=== PATIENT | male | born 1975 | race Two or more races ===

== ENCOUNTER → 2024-02-02 | Outpatient (BNVA) | payer MEDICAID, SELFPAY | END | disposition home or self-care (01) | PROVIDERS: PCP Nurse Practitioner Primary Care; Referring Provider Nurse Practitioner Primary Care; Visit Provider Nurse Practitioner Primary Care | DX: Z00.01 Encounter for general adult medical examination with abnormal findings (principal); E78.2 Mixed hyperlipidemia; Z11.3 Encounter for screening for infections with a predominantly sexual mode of transmission; E66.01 Morbid (severe) obesity due to excess calories; Z68.41 Body mass index [BMI] 40.0-44.9, adult; R01.1 Cardiac murmur, unspecified; R00.1 Bradycardia, unspecified; I10 Essential (primary) hypertension; Z13.21 Encounter for screening for nutritional disorder; R73.03 Prediabetes; Z12.5 Encounter for screening for malignant neoplasm of prostate; Z91.199 Patient's noncompliance with other medical treatment and regimen due to unspecified reason | CPT/HCPCS: 99215 ==

== ENCOUNTER → 2024-03-09 | Outpatient (BNVA) | payer MEDICAID, SELFPAY | END | disposition home or self-care (01) | PROVIDERS: PCP Nurse Practitioner Primary Care; Referring Provider Nurse Practitioner Primary Care; Visit Provider Nurse Practitioner Primary Care | DX: E78.2 Mixed hyperlipidemia (principal); I10 Essential (primary) hypertension; Z71.2 Person consulting for explanation of examination or test findings; R73.03 Prediabetes; E55.9 Vitamin D deficiency, unspecified | CPT/HCPCS: 99213 ==

== ENCOUNTER → 2024-04-21 | Outpatient (BNVA) | payer MEDICAID, SELFPAY | END | disposition home or self-care (01) | PROVIDERS: PCP Nurse Practitioner Primary Care; Referring Provider Nurse Practitioner Primary Care; Visit Provider Nurse Practitioner Primary Care | DX: E66.01 Morbid (severe) obesity due to excess calories (principal); Z68.41 Body mass index [BMI] 40.0-44.9, adult; R73.03 Prediabetes | CPT/HCPCS: 83036; 99214 ==

== ENCOUNTER 2024-06-06 18:15 | Emergency (ER) | payer MEDICAID, SELFPAY ==
[2024-06-06 18:16] VITALS: BMI 37.5
[2024-06-06 18:47] VITALS: BP 147/87; PULSE 87; RESP 20; TEMP 36.5; O2SAT 97
--- NOTE | 2024-06-06 18:49 | XR_ITS ---
Examination: AP lateral soft tissue neck 2 views Technique: AP lateral soft tissue neck 2 views Exam date and time: 04/08/2024 1934 hrs. Indications: Vomiting today Findings: No opaque foreign body depicted No distention hypopharynx Normal epiglottis Impression: No opaque foreign body visualized
--- NOTE | 2024-06-06 18:50 | PD.EDRME ---
Rapid Medical Screening Exam RME Arrival date/time: 06/06/24 18:15 49 yo m present to ED for c/o food bolus today vomiting everytime trying to drink I have greeted and performed a focused initial assessment of this patient. A comprehensive ED assessment and evaluation of the patient, analysis of all test results, and completion of the medical decision making process will be conducted by additional ED providers. Chief Complaint: General Adult/Misc Complain Time Seen by Provider: 06/06/24 18:20 Vital signs: Vital Signs Temperature 97.7 F 06/06/24 18:47 Pulse Rate 87 06/06/24 18:47 Respiratory Rate 20 06/06/24 18:47 Blood Pressure 147/87 H 06/06/24 18:47 Pulse Oximetry (%) 97 06/06/24 18:47 Oxygen Delivery Method Room Air 06/06/24 18:47
--- NOTE | 2024-06-06 20:21 | PD.EDADULT ---
ED General RME/HPI General Chief complaint: General Adult/Misc Complain Stated complaint: MEAT STUCK IN ESOPHAGUS Time Seen by Provider: 06/06/24 18:20 Arrival date/time: 06/06/24 18:15 CC: Abrupt onset of inability to swallow HPI onset 2 hours ago after eating a large piece of steak patient said he chewed it but as it went down he got lodged. Patient continues to not be able to swallow his own saliva. Patient denies any shortness of breath or difficulty breathing. RME / HPI RME / HPI narrative: 06/06/24 18:15 49 yo m present to ED for c/o food bolus today vomiting everytime trying to drink I have greeted and performed a focused initial assessment of this patient. A comprehensive ED assessment and evaluation of the patient, analysis of all test results, and completion of the medical decision making process will be conducted by additional ED providers. Related Data Previous Rx's ?Medication ?Instructions ?Recorded atorvastatin 20 mg tablet 20 mg PO QHS #90 tabs 02/02/24 fexofenadine 180 mg tablet 180 mg PO QDAY #90 tabs 02/02/24 (Allergy Relief (fexofenadine)) lisinopril 40 mg tablet 40 mg PO QDAY #90 tabs 02/02/24 Allergies Allergy/AdvReac Type Severity Reaction Status Date / Time No Known Allergies Allergy Verified 06/06/24 18:19 Review of Systems Review of Systems Narrative Review of Systems: GEN: No fever, no chills, no weight loss EYES: No discharge, no visual changes, no pain HEENT: No ear pain, no congestion, no sore throat PULM: No shortness of breath, no cough, no congestion CV: No chest pain, no dyspnea on exertion, no palpitations GI: No nausea, no vomiting, no diarrhea, no pain, no constipation : No frequency, no urgency, no dysuria MUSC/SKEL: No joint pain, no back pain SKIN: No rash PSYCH: No hallucinations, no depression HEME/LYMPH: No easy bleeding or bruising tendencies NEURO: No weakness, no headache Past Medical History Social History SMOKING STATUS: Former smoker SECOND HAND EXPOSURE: No ED Exam Narrative Physical exam: [General: Obese in mild discomfort but not in any acute distress Head normocephalic HEENT: Within acceptable limits Neck is supple nontender, no stridor. No JVD. Phonation is normal. Chest equal chest rise nontender to palpation Respiratory: Clear to auscultation no wheezes crackles or rubs CV: Rate rhythm is regular no murmurs rubs or clicks Abdomen is distended secondary to body habitus soft nontender no masses positive bowel sounds all 4 quadrants Back: No CVA tenderness no spinous process tenderness from cervical spine thoracic and lumbar spine Skin: Intact no petechiae rash induration ulceration or crepitus Extremities: Moving all extremity against resistance cap refill less than 2 seconds neurosensory intact Neuro: Awake alert oriented x3 Glascow coma 15 no focal deficits] Course Quality Measures none Orders Category Date Time Status XR soft tissue neck Stat Exams 06/06/24 18:49 Taken Glucagon Inj Med 06/06/24 20:21 Discontinued 1 mg IM X1 ONE Vital Signs Vital signs: Vital Signs Temperature 97.7 F 06/06/24 18:47 Pulse Rate 87 06/06/24 18:47 Respiratory Rate 20 06/06/24 18:47 Blood Pressure 147/87 H 06/06/24 18:47 Pulse Oximetry (%) 97 06/06/24 18:47 Oxygen Delivery Method Room Air 06/06/24 18:47 MDM Patient data External records reviewed:: [facility] previous records Clinical information provided by:: patient Social determinants that could affect healthcare access:: none Patient has the following chronic illnesses:: Hypertension hyperlipidemia How is presenting disease/condition affected by chronic disease/condition?: uneffected by Evaluation data The following diagnostics were reviewed and interpreted by me:: lab results and radiology exam(s) Lab and/or radiology exams considered but not ordered:: None Interpretation Summary: Approximate 15 minutes after glucagon papal patient was able to pass the foreign body. The patient is able to swallow fluids without complication patient will be discharged home. Medications Medications considered but not ordered:: None Medication administrations:: Medication Administration History Discontinued Medications Glucagon (Glucagon Inj 1 Mg Vial) 1 mg IM X1 ONE Stop: 06/06/24 20:22 Last Admin: 06/06/24 20:28 Dose: 1 mg Documented By: MARIELA None Consultations Consultation(s) initiated? (list below): No Diagnosis Differential Diagnosis ED Complaint MDM: Food bolus, esophageal stricture, esophageal tear Most likely diagnosis given after review of the tests above:: Food bolus Admission Indicated Admission indicated?: not indicated Explain why admission is indicated or not indicated:: Stable for discharge Admission Request Was there a request for admission?: No Disposition Plan Disposition Plan: Discharge Discharge Attestation Discharge Attestation: The patient and all family members were given an opportunity to ask questions and understood the discharge instructions. Discharge instructions specifically effects, indications for sooner follow up or return to the emergency department, and the expected course of current diagnosis. Patient condition: Stable Medical Decision Making Differential Diagnosis Differential Diagnosis: Food bolus, esophageal stricture, esophageal tear Discharge Plan Plan Patient Disposition: HOME (Self Care) Patient condition on transfer: Stable Prescriptions/Referrals Prescriptions/Med Rec: No Action atorvastatin 20 mg tablet 20 mg PO QHS Qty: 90 0RF lisinopril 40 mg tablet 40 mg PO QDAY Qty: 90 0RF fexofenadine [Allergy Relief (fexofenadine)] 180 mg tablet 180 mg PO QDAY Qty: 90 0RF Referrals: No Primary/Family,Physician [Primary Care Provider] - In 1 week Problem List Clinical Impression: Esophageal foreign body Patient/Caregiver Discharge Instructions Education Materials: ED Swallowed Foreign Body (Adult) Additional Instructions: Soft diet for the next 2 days then advance as tolerated make sure you chew all of your food completely. Print Language: Colombian Stand Alone Forms: Sarah Award Info., Work/School Release, Patient Portal Info Letter JONATHAN/CHENCHO Supervising Physician JONATHAN/CHENCHO Supervising Physician: Karen Toribio ENP
[2024-06-06 20:23] VITALS: BP 142/85; PULSE 65; RESP 18; TEMP 36.7; O2SAT 96
[2024-06-06] MEDS: GLUCAGON INJ 1 MG VIAL IM (20:28)
[2024-06-06 21:09] VITALS: BP 122/76; PULSE 61; RESP 18; O2SAT 97
--- NOTE | 2024-06-06 22:29 | PRELIM_ITS ---
Radiographs of the neck (2 views). June 06, 2024 1934 hours Clinical history: Foreign body, vomiting , possible food bolus Comparison: No prior study is available for comparison. Findings: No obvious radiopaque foreign body in the pharynx or proximal esophagus. The airway is unremarkable. There is no prevertebral soft tissue swelling. The osseous structures are unremarkable. Impression: No radiopaque foreign body identified. Report Electronically Signed By: Trini Saha 06/06/2024 10:29:10 PM [EST]
== END 2024-06-06 21:09 | disposition home or self-care (01) ==
PROVIDERS: Emergency Provider Emergency Medicine
DX: T18.128A Food in esophagus causing other injury, initial encounter (principal); I10 Essential (primary) hypertension; E78.5 Hyperlipidemia, unspecified; E66.9 Obesity, unspecified; Z68.37 Body mass index [BMI] 37.0-37.9, adult; Z87.891 Personal history of nicotine dependence; W44.F3XA Food entering into or through a natural orifice, initial encounter
CPT/HCPCS: 70360; 96372; 99283; J1610

== ENCOUNTER → 2024-07-15 | Outpatient (BNVA) | payer MEDICAID, SELFPAY | END | disposition home or self-care (01) | PROVIDERS: PCP Nurse Practitioner Primary Care; Referring Provider Nurse Practitioner Primary Care; Visit Provider Nurse Practitioner Primary Care | DX: E66.01 Morbid (severe) obesity due to excess calories (principal); Z68.41 Body mass index [BMI] 40.0-44.9, adult; R73.03 Prediabetes; Z12.11 Encounter for screening for malignant neoplasm of colon; E78.2 Mixed hyperlipidemia; E55.9 Vitamin D deficiency, unspecified | CPT/HCPCS: 99214 ==